=== PATIENT | female | born 1955 | race Caucasian/White ===

== ENCOUNTER 2019-07-01 05:32 | Observation (INO) | payer OTHER ==
[2019-07-01] VITALS (7 sets, daily range): BP systolic 135–155; BP diastolic 62–84
[~2019-07-01] VITALS: Ht 175.3 cm; Wt 120.7 kg
[~2019-07-01 05:32] MED LIST: KLOR-CON 1010 MEQ PO; LORATIDINE 10 M10 M1 PO; METHYCLOTHIAZIDE5 MG PO; PROAIR HFA8.5 GM INH; PROZAC20 MG PO; SYNTHROID200 MCG PO; SYNTHROID50 MCG PO; XANAX 0.25 MG0.25 MG PO
[2019-07-01 07:08] LABS: CALCIUM 9.3 mg/dL (8.5-10.1); CREATININE 0.8 mg/dL (0.6-1.0); POTASSIUM 3.8 mmol/L (3.5-5.1)
--- NOTE | 2019-07-01 18:25 | NUR ---
pt arrived to floor per bed from recovery room at 1330 in stable condition. Post op vss.Pain med given as ordered with relief.Pt up to br voided without difficulty.100ML bloody output emptied from lydia.Pt toleratedregular diet at dinner.Will continue to monitor.
--- NOTE | 2019-07-01 23:55 | NUR ---
ASSUMED CARE OF PT AT 1900. PT LAYING IN BED. NO BED AT THAT MOMENT BUT REQUESTED FOR PAIN MED BEFORE BED. PT IS ADLIB IN THE ROOM. DRESSING ON CHEST LOOKS CLEAN,DRY AND INTACT. 75ML OF SEROSANGUINEOUS FLUID EMPTIED FROM ALECIA. NO C/O OF N/V. PT HAS A GOOD APPETITE AND IS DRINKING QUITE WELL. CALL LIGHT WITHIN REACH
[2019-07-02 04:36] VITALS: BP 120/63
[2019-07-02 07:31] VITALS: BP 136/67
--- NOTE | 2019-07-02 10:47 | NUR ---
Assumed pt care at 7am.Pt in bed resting and very anxious about dc home this am.Assessment completed.vss.Pt c/o headache but refused taking med.Tolerated diet.Dr Sr already dc pt from recovery room yesterday per his protocol but wanted pt to stay overnight for observation.Pt filled rx yesterday prior to coming to floor.Saline lock dc'd after breakfast.Pt dc home at 0930 per wc with friend in stable condition.Pt will stop by dr Sr on her way home for drsg change.
== END 2019-07-02 10:25 | disposition home or self-care (01) ==
LOC: OR 05:32 → TBA 05:33 → OR 12:56 → 4E 13:36 → OR 14:28 → ENTRNSPT 07-02 09:43 → EDTRNSPTSTS 07-02 09:45 → 4E 07-02 10:25
PROVIDERS: ADMIT Specialist
DX: N64.81 Ptosis of breast (principal); N65.1 Disproportion of reconstructed breast; Z85.3 Personal history of malignant neoplasm of breast; Z90.11 Acquired absence of right breast and nipple
CPT/HCPCS: 50010; 50101; 50386; 50403; 50648; 52188; 54118; 56524; 56525; 56526; 56527; 56528; 57146; 57151; 62110; 62900; 70005

== ENCOUNTER → 2020-10-29 | Outpatient (CLI) | payer OTHER | LOC: LAB 09:00 | PROVIDERS: ATTEND Anesthesiology | DX: Z01.812 Encounter for preprocedural laboratory examination (principal) ==